=== PATIENT | female | born 1995 | race Caucasian/White ===

== ENCOUNTER 2016-08-10 12:43 | Emergency (ER) | payer BC, OTHER ==
[~2016-08-10] VITALS: Ht 152.4 cm; Wt 85.0 kg
[2016-08-10] VITALS (8 sets, daily range): BP systolic 116–134; BP diastolic 56–97; PULSE 62–98; RESP 16–22; TEMP 99.2; O2SAT 98–100
[~2016-08-10 12:43] MED LIST: LORTA5 PO; MUCI600T PO; Z.0.BCPILL PO
--- NOTE | 2016-08-10 12:48 | PD ---
Physical Exam Date Seen by Provider: August 10, 2016 Time Seen by Provider: 12:47 Narrative 21 year old female presents to the emergency department for evaluation of left jaw pain for 1 hour. She reports history of jaw dislocations. She states the last time this happened was in December and she had conscious sedation and jaw was reduced. Vital signs reviewed. Patient awaiting bed placement. Data Data Last Documented VS Vital Signs Date Time Temp Pulse Resp B/P Pulse Ox O2 Delivery O2 Flow Rate FiO2 08/10/16 12:45 99.2 98 18 134/97 100 MDM Supervised Visit with SAMPSON: Leta Ragsdale August 10, 2016 12:48
[2016-08-10] MEDS ORDERED: PROPOFOL 200 MG/20 ML AMP IV ONE (13:15)
[2016-08-10] MEDS ORDERED: SODIUM CHLOR 0.9% 1000 ML INJ 1,000 ML IV SCH (13:15)
--- NOTE | 2016-08-10 13:19 | PD ---
HPI Chief Complaint: Oral / Dental Pain or Problem Time Seen by Provider: 13:05 Travel History International Travel<30 days: No Contact w/Intl Traveler<30days: No Traveled to known affect area: No History of Present Illness HPI 21-year-old female presents for evaluation of left jaw pain, dislocation. 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 She reports that today she yawned and felt her left TMJ dislocate. She is now unable to open her mouth. She is associated pain in the left TMJ region, constant, worse when attempting to open her mouth. Denies any facial trauma. No other complaints. PFSH Past Medical History Cancer: No Cardiovascular Problems: No Diabetes: No Diminished Hearing: No Endocrine: No Genitourinary: No Hepatitis: No Hiatal Hernia: No Immune Disorder: No Musculoskeletal: Yes (RIGHT KNEE INTERNAL DERANGEMENT) Neurologic: No Psychiatric: Yes (CLAUSTRAPHOBIA) Reproductive: Yes (PELVIC PAIN) Respiratory: No Immunizations Current: Yes Thyroid Disease: No Past Surgical History AICD: No Joint Replacement: No Oral Surgery: Yes (MANDIBULAR MANIPULATION) Pacemaker: No Social History Alcohol Use: No Tobacco Use: Yes (< 1/2 PPD) Substance Use: No Allergies-Medications (Allergen,Severity, Reaction): Coded Allergies: No Known Allergies (Unverified , 08/10/16) Reported Meds & Prescriptions Reported Meds & Active Scripts Active No Active Prescriptions or Reported Medications Review of Systems General / Constitutional: No: Fever, Chills HENT: Positive: Other (positive for for trismus, left-sided jaw pain, deviation of the mandible to the left.) Respiratory: No: Shortness of Breath Physical Exam Narrative GENERAL: Well-developed well-nourished female in no acute distress SKIN: Warm and dry. HEAD: Atraumatic. Normocephalic. EYES: Pupils equal and round. No scleral icterus. No injection or drainage. ENT: No nasal bleeding or discharge. Mucous membranes pink and moist. The patient has significant trismus, unable to open the mouth greater than 1 cm. Her mandible appears deviated to the left. NECK: Trachea midline. No JVD. CARDIOVASCULAR: Regular rate and rhythm. No murmur appreciated. RESPIRATORY: No accessory muscle use. Clear to auscultation. Breath sounds equal bilaterally. GASTROINTESTINAL: Abdomen soft, non-tender, nondistended. Hepatic and splenic margins not palpable. NEUROLOGICAL: Awake and alert. No obvious cranial nerve deficits. Motor grossly within normal limits. Normal speech. PSYCHIATRIC: Appropriate mood and affect; insight and judgment normal. Data Data Last Documented VS Vital Signs Date Time Temp Pulse Resp B/P Pulse Ox O2 Delivery O2 Flow Rate FiO2 08/10/16 14:11 98 Nasal Cannula 2.00 08/10/16 14:05 80 22 122/70 08/10/16 12:45 99.2 Orders Ecg Monitoring (08/10/16 13:13) Iv Access Insert/Monitor (08/10/16 13:13) Oximetry (08/10/16 13:13) Sodium Chlor 0.9% 1000 Ml Inj (Ns 1000 M (08/10/16 13:15) Propofol 200 Mg/20 Ml Inj (Diprivan 200 (08/10/16 13:15) MDM Medical Decision Making Medical Screen Exam Complete: Yes Emergency Medical Condition: Yes Medical Record Reviewed: Yes Differential Diagnosis TMJ dislocation, spasm, subluxation, disorder Narrative Course 21-year-old female with recurrent TMJ dislocations presents after yawning and having inability to open mouth, deviation of the mandible to the left, consistent with previous dislocations in the past. Plan is for procedural sedation, joint reduction for which she gave consent, see Dr. Aquino's procedural note. The plan would be to have her follow up with Dr. Reese who she has seen in the past. Procedures Procedure Narrative After the risks and benefits were discussed the following procedure was performed: MODERATE SEDATION: The patient was placed on a hand roller engraver and pulse oximetry. An ambu bag and suction was immediately available at bedside. The patient was monitored by the nurse. Oxygen saturation , heart rate and blood pressure were monitored. Procedural sedation was acheived using 80 mg propofol. The patient was observed until awake and alert. Procedural Sedation time in attendance was 10 minutes. Done under direct supervision of Dr. Aquino. Diagnosis Primary Impression: Dislocation of mandible Qualified Code: S03.00XA - Dislocation of mandible, initial encounter Referrals: Lionel Brewer DDS Additional Instructions: Follow-up with Dr. Brewer. Avoid activities that fully open the mouth and engage the TMJ joint such as sneezing, yawning. Return for any emergent medical conditions. Med/Other Pt SpecificInfo: No Change to Meds Scripts No Active Prescriptions or Reported Meds Disposition: 01 DISCHARGE HOME Condition: Stable Angelo Layne August 10, 2016 13:19
[2016-08-10] MEDS ORDERED: ACETAMINOPHEN 325 MG TAB PO ONE (14:30)
--- NOTE | 2016-08-10 14:32 | PD ---
Data Data Last Documented VS Vital Signs Date Time Temp Pulse Resp B/P Pulse Ox O2 Delivery O2 Flow Rate FiO2 08/10/16 14:21 62 18 116/56 100 Nasal Cannula 2.0 08/10/16 12:45 99.2 Orders Ecg Monitoring (08/10/16 13:13) Iv Access Insert/Monitor (08/10/16 13:13) Oximetry (08/10/16 13:13) Sodium Chlor 0.9% 1000 Ml Inj (Ns 1000 M (08/10/16 13:15) Propofol 200 Mg/20 Ml Inj (Diprivan 200 (08/10/16 13:15) Acetaminophen (Tylenol) (08/10/16 14:30) MDM Supervised Visit with SAMPSON: Yes Narrative Course This patient had spontaneous dislocation of TMJ after yawning. No injury or trauma. It is a recurrent problem so I did not feel imaging was indicated. We discussed risks and alternatives and she agreed and signed consents. Procedure note: Adequate sedation was achieved using 80 mg IV Diprivan. When her muscles relaxed and she was sedated, I wrapped my thumbs in gauze and applied downward pressure to the jaw on top of the molars. After distracting the jaw somewhat, I then applied pressure inward. This released the TMJ into the proper position. Patient tolerated the procedure well. No complications encountered. I reassessed her later and she is able to speak and open her mouth. This was something she could not do before. Total bedside time 15 min Please see HOLLY Stephens's dictation for the sedation note. Diagnosis Primary Impression: Dislocation of mandible Qualified Code: S03.00XA - Dislocation of mandible, initial encounter Referrals: Lionel Brewer DDS Additional Instruction: Follow-up with Dr. Brewer. Avoid activities that fully open the mouth and engage the TMJ joint such as sneezing, yawning. Return for any emergent medical conditions. Scripts No Active Prescriptions or Reported Meds Disposition: 01 DISCHARGE HOME Condition: Stable Albino Aquino MD August 10, 2016 14:32
== END 2016-08-10 15:39 | disposition home or self-care (01) ==
LOC: NEPD 12:43
DX: S03.02XA Dislocation of jaw, left side, initial encounter (principal); X58.XXXA Exposure to other specified factors, initial encounter
CPT/HCPCS: 21480; 99156; 99283; J7030

== ENCOUNTER 2016-12-27 01:59 | Emergency (ER) | payer BC ==
[~2016-12-27] VITALS: Ht 152.4 cm; Wt 90.0 kg
[2016-12-27 02:01] VITALS: BP 132/85; PULSE 98; RESP 15; TEMP 98.1; O2SAT 100
--- NOTE | 2016-12-27 02:24 | PD ---
HPI Chief Complaint: Oral / Dental Pain or Problem Time Seen by Provider: 02:15 Travel History International Travel<30 days: No Contact w/Intl Traveler<30days: No Traveled to known affect area: No History of Present Illness HPI PATIENT C/O UPON AWAKENING HAVING FACIAL PAIN, C/O JAW PAIN, AND UNABLE TO OPEN HER JAW, IT FEELS LIKE HER USUAL DISLOCATION PFSH Past Medical History Cancer: No Cardiovascular Problems: No Diabetes: No Diminished Hearing: No Endocrine: No Genitourinary: No Hepatitis: No Hiatal Hernia: No Herniated Disk: Yes Immune Disorder: No Musculoskeletal: Yes (RIGHT KNEE INTERNAL DERANGEMENT) Neurologic: No Psychiatric: Yes (CLAUSTRAPHOBIA) Reproductive: Yes (PELVIC PAIN) Respiratory: No Immunizations Current: Yes Thyroid Disease: No ?: Not Ectopic : Yes Past Surgical History Abdominal Surgery: Yes (LAPAROSCOPY) AICD: No Joint Replacement: No Oral Surgery: Yes (MANDIBULAR MANIPULATION) Pacemaker: No Other Surgery: Yes Social History Alcohol Use: No Tobacco Use: Yes (< 1/2 PPD) Substance Use: No Allergies-Medications (Allergen,Severity, Reaction): Coded Allergies: No Known Allergies (Unverified , 12/27/16) Reported Meds & Prescriptions Reported Meds & Active Scripts Active Active Prescriptions or Reported Medications Unobtainable Review of Systems Except as stated in HPI: all other systems reviewed are Neg Musculoskeletal: Positive: Limited ROM (JAW PAIN AND DEVIATION) Physical Exam Narrative GENERAL: SKIN: Warm and dry. HEAD: Atraumatic. Normocephalic. EYES: Pupils equal and round. No scleral icterus. No injection or drainage. ENT: No nasal bleeding or discharge. Mucous membranes pink and moist. LOWER JAW DEVIATED TO LEFT, MOUTH CLOSED, AND TTP AT TMJ REGION NECK: Trachea midline. No JVD. CARDIOVASCULAR: Regular rate and rhythm. RESPIRATORY: No accessory muscle use. Clear to auscultation. Breath sounds equal bilaterally. GASTROINTESTINAL: Abdomen soft, non-tender, nondistended. Hepatic and splenic margins not palpable. MUSCULOSKELETAL: Extremities without clubbing, cyanosis, or edema. No obvious deformities. NEUROLOGICAL: Awake and alert. No obvious cranial nerve deficits. Motor grossly within normal limits. Five out of 5 muscle strength in the arms and legs. Normal speech. PSYCHIATRIC: Appropriate mood and affect; insight and judgment normal. Data Data Last Documented VS Vital Signs Date Time Temp Pulse Resp B/P (MAP) Pulse Ox O2 Delivery O2 Flow Rate FiO2 12/27/16 05:47 69 18 124/59 (80) 100 Room Air 12/27/16 02:[address] Facial Bones W/O Iv Cont (12/27/16 ) Midazolam Inj (Versed Inj) (12/27/16 03:30) Iv Access Insert/Monitor (12/27/16 03:24) Midazolam Inj (Versed Inj) (12/27/16 03:42) Mandible, Ltd (Less Than 4vws) (12/27/16 ) Famotidine Inj (Pepcid Inj) (12/27/16 04:30) Diphenhydramine Inj (Benadryl Inj) (12/27/16 04:30) Methylprednisolone So Succ Inj (Solumedr (12/27/16 04:30) MDM Medical Decision Making Medical Screen Exam Complete: Yes Emergency Medical Condition: Yes Medical Record Reviewed: Yes Differential Diagnosis TMJ PAIN V JAW DISLOCATION V JAW FX Narrative Course PER CT PARTIAL SUBLUXATION OF RIGHT MANDIBLE. REPEAT XRAY SHOWED SUBLUXED RIGHT MANDIBULAR HEAD....AFTER PROTECTING MY THUMBS IN GAUZE AND ATTEMPTED REDUCTION AGAIN...AFTER REDUCTION PATIENT WAS ABLE TO OPEN, CLOSE MOUTH FULLY, ABLE TO MOVE MANDIBLE LEFT AND RIGHT WITHOUT DIFFICULTY AND NO LONGER DEVIATED AT REST..., HOWEVER TO BE ON SAFE SIDE PATIENT WILL BE REFERRED TO [facility] FOR FURTHER REEVALUATION. Procedures Procedure Narrative The patient was placed on a media monitor and pulse oximetry. An ambu bag and suction was immediately available at bedside. The patient was monitored by the nurse. Oxygen saturation, heart rate and blood pressure were monitored. Procedural sedation was acheived using [VERSED 5MG]. The patient was observed until awake and alert. Procedural Sedation time in attendance was [30] minutes. Diagnosis Primary Impression: Dislocation of mandible Qualified Codes: S03.00XA - Dislocation of jaw, unspecified side, initial encounter Additional Impressions: S/P REDUCTION CLOSED S/P SEDATION Referrals: Aamir Wynn DMD FOR FURTHER REEVALUATION OF YOUR MANDIBLE. Patient Instructions: General Instructions, Mandibular Dislocation (ED), Moderate Sedation (ED) Scripts Unable to Obtain Active Prescriptions or Reported Meds Disposition: 01 DISCHARGE HOME Condition: Stable Manuel Tang MD Dec 27, 2016 02:23
[2016-12-27] MEDS ORDERED: MIDAZOLAM HCL 5 MG/5 ML VIAL IV PUSH ONE (03:30)
--- NOTE | 2016-12-27 03:34 | RADRPT ---
EXAM DATE/TIME: 12/27/2016 03:04 [facility] COMPARISON: No previous studies available for comparison. INDICATIONS : Evaluate mandibluar dislocation. RADIATION DOSE: 49.97 CTDIvol (mGy) MEDICAL HISTORY : None SURGICAL HISTORY : None. ENCOUNTER: Initial ACUITY: 1 day PAIN SCORE: 5/10 LOCATION: mandible TECHNIQUE: Volumetric scanning of the facial bones was performed. Using automated exposure control and adjustme nt of the mA and/or kV according to patient size, radiation dose was kept as low as reasonably achiev able to obtain optimal diagnostic quality images. DICOM format image data is available electronicall y for review and comparison. FINDINGS: The right mandibular head is subluxed slightly inferiorly and anteriorly. The left mandibular head ap pears to be in the mandibular fossa. No mandibular fracture is identified. No bony destructive change s. Visualized paranasal sinuses are clear. CONCLUSION: 1. Subluxation of the right mandibular head as above. No fracture identified. This would be better ev aluated with MRI of the temporomandibular joints which could be performed on outpatient basis. Anthony Fitzgerald MD on December 27, 2016 at 3:26 Board Certified Radiologist. This report was verified electronically.
[2016-12-27] MEDS ORDERED: MIDAZOLAM HCL 5 MG/ML VIAL (1 ML) ONE (03:42)
[2016-12-27 03:53] VITALS: BP 117/77; PULSE 78; RESP 17; O2SAT 99
[2016-12-27] MEDS ORDERED: FAMOTIDINE 20 MG/2 ML VIAL IV PUSH SCH (04:30)
[2016-12-27] MEDS ORDERED: methylPREDNISolone SOD SUCC 125 MG/2 ML VIAL IV PUSH ONE (04:30)
[2016-12-27] MEDS ORDERED: diphenhydrAMINE HCL 50 MG/ML VIAL IV PUSH ONE (04:30)
[2016-12-27 05:47] VITALS: BP 124/59; PULSE 69; RESP 18; O2SAT 100
--- NOTE | 2016-12-27 05:55 | RADRPT ---
EXAM DATE/TIME: 12/27/2016 05:05 [facility] COMPARISON: No previous studies available for comparison. INDICATIONS : Post reduction. MEDICAL HISTORY : None. SURGICAL HISTORY : None. ENCOUNTER: Subsequent ACUITY: 1 day PAIN SCORE: Non-responsive. LOCATION: Left Mandible. FINDINGS: The right mandibular head is subluxed slightly anteriorly and inferiorly when compared with the left mandibular head. No fracture identified. CONCLUSION: 1. Subluxed right mandibular head. Anthony Fitzgerald MD on December 27, 2016 at 5:50 Board Certified Radiologist. This report was verified electronically.
== END 2016-12-27 06:25 | disposition home or self-care (01) ==
LOC: NEPE 01:59
DX: S03.00XA Dislocation of jaw, unspecified side, initial encounter (principal); X58.XXXA Exposure to other specified factors, initial encounter
CPT/HCPCS: 21480; 70100; 70486; 96374; 96375; 99152; 99153; 99285; J1200; J2250; J2930